=== PATIENT | male | born 1935 | race Caucasian/White ===

== ENCOUNTER 2020-07-12 19:09 | Inpatient (IN) | payer MEDICARE, OTHER ==
[~2020-07-12] VITALS: Ht 175.3 cm; Wt 95.8 kg
[~2020-07-12 19:09] MED LIST: ACETAMINOPHEN325 MG PO; ASPIRIN EC81 MG PO; BUMETANIDE2 MG PO; BUMEX1 MG PO; CENTRUM ADULTS1 EACH PO; DETROL 2MG TABLE2 MG PO; ELIQUIS2.5 MG PO; IMDUR 30MG TABL30 MG PO; ISOSORBIDE MONO30 MG PO; LASIX40 MG PO; LOPRESSOR25 MG PO; LOVAZA1 GM PO; MEN 50 PLUS MU1 EACH PO; NAMENDA 10MG TA10 MG PO; NITROQUIK SL0.4 MG SL; NORCO 5-325 TA1 EACH PO; PERCOCET 5-3251 EACH PO; PLAVIX75 MG PO; PROTONIX 40MG T40 MG PO; SYNTHROID100 MCG PO; SYNTHROID112 MC1 PO; TERAZOSIN HCL10 MG PO; TOPROL XL50 MG PO; ZOCOR40 MG PO; ZOFRAN4 MG PO
[2020-07-12 20:15] LABS: BASOPHIL 0.6 % (0-2); EOSINOPHIL 2.2 % (0-7); HCT 37.9 % (42.0-52.0); HGB 13.8 g/dl (13.2-18.0); LYMPHOCYTE 20.9 % (15-48); MCHC 36.4 g/dL (32.0-36.0); MCV 90.7 fL (78.0-100.0); MONOCYTE 12.8 % (0-12); MPV 10.3 fL (6.0-9.5); NRBC 0; PLT 230 K/uL (150-400); RBC 4.18 M/uL (4.70-6.00); RDW 12.8 % (11.5-14.0); WBC 6.4 K/uL (4.0-10.5)
[2020-07-12 20:32] LABS: ALBUMIN 3.7 g/dL (3.4-5.0); BILIRUBIN - TOTAL 2.1 mg/dL (0.2-1.0); CREATININE 3.64 mg/dL (0.67-1.17); GLOBULIN (CALCULATION) 4.4 g/dL; MAGNESIUM 2.8 mg/dL (1.8-2.4); POTASSIUM 3.1 mmol/L (3.5-5.1); TOTAL PROTEIN 8.1 g/dL (6.4-8.2)
[2020-07-12 23:59] LABS: CORONAVIRUS 2019 SARS-COV-2 NEGATIVE (NEGATIVE); INFLUENZA A NAA NEGATIVE (NEGATIVE)
[2020-07-13 06:52] LABS: BASOPHIL 0.8 % (0-2); EOSINOPHIL 2.8 % (0-7); HCT 37.5 % (42.0-52.0); HGB 13.7 g/dl (13.2-18.0); LYMPHOCYTE 27.5 % (15-48); MCHC 36.5 g/dL (32.0-36.0); MCV 90.4 fL (78.0-100.0); MONOCYTE 12.6 % (0-12); MPV 10.6 fL (6.0-9.5); NRBC 0; PLT 232 K/uL (150-400); RBC 4.15 M/uL (4.70-6.00); RDW 12.7 % (11.5-14.0)
[2020-07-13 07:07] LABS: CREATININE 3.26 mg/dL (0.67-1.17); MAGNESIUM 2.6 mg/dL (1.8-2.4)
[2020-07-13 07:14] LABS: POTASSIUM 2.4 mmol/L (3.5-5.1)
[2020-07-13 13:47] LABS: BILIRUBIN NEGATIVE (NEGATIVE); BLOOD NEGATIVE Ery/uL (NEGATIVE); CLARITY CLEAR (CLEAR); COLOR YELLOW (YELLOW); GLUCOSE (U) NORMAL (NORMAL); LEUKOCYTES NEGATIVE Leu/uL (NEGATIVE); NITRITE NEGATIVE (NEGATIVE); PROTEIN NEGATIVE (NEGATIVE); pH 6.5 (5.0-9.0)
--- NOTE | 2020-07-13 15:16 | NUR ---
07/13/ Mr. Thomas lives with his spouse and son. He has a rw, 3in1, and handrails in the shower. He is currently followed by [facility] and wishes to continue services; affliation is understood. A referral was made to [facility] via [facility].
[2020-07-13] MEDS ORDERED: SYNTHROID112 MCG PO (17:28)
[2020-07-13] MEDS ORDERED: ALDACTONE25 M1 PO (17:28)
[2020-07-13] MEDS ORDERED: EFFER-K 20 MEQ20 MEQ PO (17:29)
[2020-07-13] MEDS ORDERED: ISOSORBIDE MONO60 MG PO (17:30)
[2020-07-13] MEDS ORDERED: LOPRESSOR50 MG PO (17:30)
[2020-07-13] MEDS ORDERED: BUMEX1 MG PO (17:31)
[2020-07-13] MEDS ORDERED: DETROL1 MG PO (18:21)
[2020-07-13] MEDS ORDERED: NAMENDA 10MG TA10 MG PO (18:22)
[2020-07-13] MEDS ORDERED: POTASSIUM CHLO20 ME2 PO (18:26)
[2020-07-14 06:12] LABS: BASOPHIL 0.7 % (0-2); EOSINOPHIL 3.3 % (0-7); HCT 36.4 % (42.0-52.0); HGB 13.2 g/dl (13.2-18.0); LYMPHOCYTE 26.3 % (15-48); MCH 33.6 pg (25.0-31.0); MCHC 36.3 g/dL (32.0-36.0); MCV 92.6 fL (78.0-100.0); MONOCYTE 13.1 % (0-12); MPV 10.5 fL (6.0-9.5); NEUTROPHIL 56.2 % (41-80); NRBC 0; PLT 205 K/uL (150-400); RBC 3.93 M/uL (4.70-6.00); WBC 5.5 K/uL (4.0-10.5)
[2020-07-14 06:31] LABS: CREATININE 2.7 mg/dL (0.67-1.17); POTASSIUM 3.2 mmol/L (3.5-5.1)
--- NOTE | 2020-07-14 06:34 | NUR ---
JENIFER JARAMILLO FROM LAB CALLED CRITICAL BUN OF 87 AT [id number]. [facility] HOSPITALIST NOTIFIED ON FLOOR.
[2020-07-14] MEDS ORDERED: ASPIRIN EC81 M1 PO (13:38)
[2020-07-14] MEDS ORDERED: ELIQUIS2.5 MG PO (13:39)
[2020-07-14] MEDS ORDERED: LOVAZA1 GM PO (13:40)
[2020-07-14] MEDS ORDERED: ONE DAILY MULT1 EAC1 PO (13:48)
[2020-07-14] MEDS ORDERED: PROTONIX 40MG T40 MG PO (13:49)
[2020-07-14] MEDS ORDERED: ZOCOR40 MG PO (13:50)
[2020-07-14] MEDS ORDERED: TERAZOSIN HCL10 MG PO (13:51)
[2020-07-15 06:28] LABS: BASOPHIL 0.8 % (0-2); EOSINOPHIL 5.5 % (0-7); HCT 36.3 % (42.0-52.0); HGB 13.1 g/dl (13.2-18.0); LYMPHOCYTE 24.2 % (15-48); MCH 33.9 pg (25.0-31.0); MCHC 36.1 g/dL (32.0-36.0); MONOCYTE 11.6 % (0-12); MPV 10.6 fL (6.0-9.5); NEUTROPHIL 57.5 % (41-80); NRBC 0; PLT 196 K/uL (150-400); RBC 3.86 M/uL (4.70-6.00); RDW 13.4 % (11.5-14.0); WBC 4.9 K/uL (4.0-10.5)
[2020-07-15 06:50] LABS: BUN/CREAT RATIO (CALC) 36.7 RATIO; CREATININE 1.88 mg/dL (0.67-1.17); POTASSIUM 3.3 mmol/L (3.5-5.1)
--- NOTE | 2020-07-15 12:31 | NUR ---
07/15 [facility] was notified of discharge for today. Report given to MS LESVIA Morin.
[2020-07-15] MEDS ORDERED: METOLAZONE 5MG T5 M1 PO (15:31)
== END 2020-07-15 16:55 | disposition home health service (06) | DRG 683 ==
LOC: FER 19:09 → FMS 22:18
PROVIDERS: Emergency Medicine; Internal Medicine; Nurse Practitioner; ADMIT Internal Medicine
DX: N17.9 Acute kidney failure, unspecified (principal); I13.0 Hypertensive heart and chronic kidney disease with heart failure and stage 1 through stage 4 chronic kidney disease, or unspecified chronic kidney disease; N18.4 Chronic kidney disease, stage 4 (severe); Z20.822 Contact with and (suspected) exposure to COVID-19; I50.9 Heart failure, unspecified; I25.10 Atherosclerotic heart disease of native coronary artery without angina pectoris; N40.0 Benign prostatic hyperplasia without lower urinary tract symptoms; Z96.653 Presence of artificial knee joint, bilateral; E87.70 Fluid overload, unspecified; E87.6 Hypokalemia; T50.2X5A Adverse effect of carbonic-anhydrase inhibitors, benzothiadiazides and other diuretics, initial encounter; H91.90 Unspecified hearing loss, unspecified ear; Z96.641 Presence of right artificial hip joint; Z95.0 Presence of cardiac pacemaker; Z95.5 Presence of coronary angioplasty implant and graft; Z90.49 Acquired absence of other specified parts of digestive tract; Z98.890 Other specified postprocedural states
CPT/HCPCS: 36415; 71045; 80048; 80053; 81003; 83735; 85025; 93005; J1644; J7030; U0002

== ENCOUNTER 2020-08-19 16:58 | Inpatient (IN) | payer MEDICARE, OTHER ==
[~2020-08-19 16:58] MED LIST changes: +ALDACTONE25 M1 PO; +ASPIRIN EC81 M1 PO; +DETROL1 MG PO; +EFFER-K 20 MEQ20 MEQ PO; +ISOSORBIDE MONO60 MG PO; +LOPRESSOR50 MG PO; +METOLAZONE 5MG T5 M1 PO; +ONE DAILY MULT1 EAC1 PO; +POTASSIUM CHLO20 ME2 PO; +SYNTHROID112 MCG PO
[2020-08-19 19:10] LABS: BASOPHIL 0.2 % (0-2); EOSINOPHIL 0 % (0-7); HCT 38.2 % (42.0-52.0); HGB 13.8 g/dl (13.2-18.0); LYMPHOCYTE 10.8 % (15-48); MCH 34.2 pg (25.0-31.0); MCHC 36.1 g/dL (32.0-36.0); MCV 94.8 fL (78.0-100.0); MONOCYTE 5.5 % (0-12); MPV 11.1 fL (6.0-9.5); NEUTROPHIL 83.2 % (41-80); NRBC 0; PLT 189 K/uL (150-400); RBC 4.03 M/uL (4.70-6.00); WBC 9.4 K/uL (4.0-10.5)
[2020-08-19 19:27] LABS: ALBUMIN 3.8 g/dL (3.4-5.0); BILIRUBIN - TOTAL 1.9 mg/dL (0.2-1.0); BUN/CREAT RATIO (CALC) 28.9 RATIO; CREATININE 2.01 mg/dL (0.67-1.17); GLOBULIN (CALCULATION) 4.4 g/dL; POTASSIUM 4.1 mmol/L (3.5-5.1); TOTAL PROTEIN 8.2 g/dL (6.4-8.2)
[2020-08-19 19:39] LABS: IRON % SATURATION 24.3 %SAT (20-50)
[2020-08-19 19:49] LABS: BILIRUBIN NEGATIVE (NEGATIVE); BLOOD NEGATIVE Ery/uL (NEGATIVE); CLARITY CLEAR (CLEAR); COLOR YELLOW (YELLOW); GLUCOSE (U) NORMAL (NORMAL); LEUKOCYTES NEGATIVE Leu/uL (NEGATIVE); NITRITE NEGATIVE (NEGATIVE); PROTEIN NEGATIVE (NEGATIVE); UROBILINOGEN 0.2 mg/dL (0.2-1.0)
[2020-08-19 19:50] LABS: LACTIC ACID 3.1 mmol/L (0.4-1.9)
[2020-08-19 19:56] LABS: MAGNESIUM 2.8 mg/dL (1.8-2.4)
[2020-08-19 19:57] LABS: C-REACTIVE PROTEIN < 0.20 mg/dL (<=0.90)
[2020-08-20 05:40] LABS: BASOPHIL 0.5 % (0-2); EOSINOPHIL 0.8 % (0-7); HCT 35.5 % (42.0-52.0); HGB 12.8 g/dl (13.2-18.0); LYMPHOCYTE 20.4 % (15-48); MCH 34.3 pg (25.0-31.0); MCHC 36.1 g/dL (32.0-36.0); MCV 95.2 fL (78.0-100.0); MONOCYTE 9.2 % (0-12); MPV 10.9 fL (6.0-9.5); NEUTROPHIL 68.8 % (41-80); NRBC 0; PLT 161 K/uL (150-400); RBC 3.73 M/uL (4.70-6.00); RDW 13.2 % (11.5-14.0); WBC 6.5 K/uL (4.0-10.5)
[2020-08-20 06:02] LABS: ALBUMIN 3.5 g/dL (3.4-5.0); BILIRUBIN - TOTAL 1.3 mg/dL (0.2-1.0); BUN/CREAT RATIO (CALC) 29.5 RATIO; CREATININE 1.93 mg/dL (0.67-1.17); GLOBULIN (CALCULATION) 3.4 g/dL; POTASSIUM 3.8 mmol/L (3.5-5.1); TOTAL PROTEIN 6.9 g/dL (6.4-8.2)
[2020-08-21 05:43] LABS: BASOPHIL 0.4 % (0-2); EOSINOPHIL 1.9 % (0-7); HCT 35.7 % (42.0-52.0); HGB 12.4 g/dl (13.2-18.0); LYMPHOCYTE 20.8 % (15-48); MCH 34.3 pg (25.0-31.0); MCHC 34.7 g/dL (32.0-36.0); MCV 98.9 fL (78.0-100.0); MONOCYTE 9.5 % (0-12); MPV 10.6 fL (6.0-9.5); NRBC 0; PLT 157 K/uL (150-400); RBC 3.61 M/uL (4.70-6.00); RDW 13.7 % (11.5-14.0); WBC 6.8 K/uL (4.0-10.5)
[2020-08-21 06:18] LABS: BUN/CREAT RATIO (CALC) 28.4 RATIO; CREATININE 2.22 mg/dL (0.67-1.17); MAGNESIUM 2.8 mg/dL (1.8-2.4); POTASSIUM 4.7 mmol/L (3.5-5.1)
[2020-08-22 04:51] LABS: BASOPHIL 0.4 % (0-2); EOSINOPHIL 2.2 % (0-7); HCT 34.8 % (42.0-52.0); HGB 12.2 g/dl (13.2-18.0); MCH 34.5 pg (25.0-31.0); MCHC 35.1 g/dL (32.0-36.0); MCV 98.3 fL (78.0-100.0); MONOCYTE 9.1 % (0-12); MPV 10.6 fL (6.0-9.5); NRBC 0; PLT 154 K/uL (150-400); RBC 3.54 M/uL (4.70-6.00); RDW 13.6 % (11.5-14.0); WBC 7.4 K/uL (4.0-10.5)
[2020-08-22 05:08] LABS: BUN/CREAT RATIO (CALC) 30.5 RATIO; CREATININE 1.74 mg/dL (0.67-1.17); MAGNESIUM 2.6 mg/dL (1.8-2.4); POTASSIUM 4.6 mmol/L (3.5-5.1)
[2020-08-23 06:55] LABS: BUN/CREAT RATIO (CALC) 26.3 RATIO; CREATININE 1.94 mg/dL (0.67-1.17); POTASSIUM 4.1 mmol/L (3.5-5.1)
[2020-08-24] MEDS ORDERED: BUMETANIDE1 MG PO (10:24)
[2020-08-24] MEDS ORDERED: LOPRESSOR25 MG PO (10:24)
== END 2020-08-24 13:15 | disposition home or self-care (01) | DRG 281 ==
LOC: FER 16:58 → FTCU 23:07
PROVIDERS: Emergency Medicine; Nurse Practitioner; ADMIT Internal Medicine
DX: I21.4 Non-ST elevation (NSTEMI) myocardial infarction (principal); I13.0 Hypertensive heart and chronic kidney disease with heart failure and stage 1 through stage 4 chronic kidney disease, or unspecified chronic kidney disease; N17.9 Acute kidney failure, unspecified; I95.2 Hypotension due to drugs; N18.30 Chronic kidney disease, stage 3 unspecified; I50.9 Heart failure, unspecified; I25.10 Atherosclerotic heart disease of native coronary artery without angina pectoris; I48.91 Unspecified atrial fibrillation; S91.101A Unspecified open wound of right great toe without damage to nail, initial encounter; Z95.5 Presence of coronary angioplasty implant and graft; R53.1 Weakness; Z20.822 Contact with and (suspected) exposure to COVID-19; Z95.0 Presence of cardiac pacemaker; N40.0 Benign prostatic hyperplasia without lower urinary tract symptoms; H91.90 Unspecified hearing loss, unspecified ear; Z96.653 Presence of artificial knee joint, bilateral; Z66 Do not resuscitate; Z96.641 Presence of right artificial hip joint; Z90.49 Acquired absence of other specified parts of digestive tract; Z79.899 Other long term (current) drug therapy; Z79.82 Long term (current) use of aspirin; Z79.01 Long term (current) use of anticoagulants; E86.0 Dehydration; Z83.3 Family history of diabetes mellitus; Z82.49 Family history of ischemic heart disease and other diseases of the circulatory system; Z83.1 Family history of other infectious and parasitic diseases; Z88.0 Allergy status to penicillin
CPT/HCPCS: 36415; 70450; 71045; 71250; 80048; 80053; 81003; 82607; 82746; 83540; 83550; 83605; 83735; 83880; 84100; 84145; 84443; 84484; 85025; 86140; 93005; 97162; 97166; 97530; 97530-GP; 97535; J7040; U0002